=== PATIENT | female | born 1995 | race Caucasian/White ===

== ENCOUNTER 2018-09-08 17:43 | Inpatient (IN) | payer MEDICAID, OTHER ==
[~2018-09-08] VITALS: Ht 160 cm; Wt 96.6 kg
[2018-09-08] MEDS ORDERED: DEXT 5%/LR + PITOCIN 20UNITS/L 1,000 ML IV SCH ×2 (18:33→22:10)
[2018-09-08] MEDS ORDERED: CEFAZOLIN 2000MG PREMIX 50 ML IV ONE (18:37)
[2018-09-08] MEDS ORDERED: MORPHINE SULFATE/PF 1MG/ML 10ML AMP ONE (18:38)
[2018-09-08] MEDS ORDERED: EPHEDRINE SULFATE 50MG/ML VIAL ONE (18:38)
[2018-09-08] MEDS ORDERED: PHENYLEPHRINE HCL 10 MG/ML 1ML (IV VIAL) IV ONE (18:38)
[2018-09-08] MEDS ORDERED: OXYTOCIN 10 UNITS/ML 1ML ONE (18:38)
[2018-09-08] MEDS ORDERED: SODIUM CHLORIDE 0.9% 10ML VIAL ONE (18:38)
[2018-09-08] MEDS ORDERED: GLYCOPYRROLATE 0.2 MG/ML 2ML VIAL ONE (18:38)
[2018-09-08] MEDS ORDERED: ONDANSETRON HCL 4MG/2ML INJ ONE (18:38)
[2018-09-08] MEDS ORDERED: FENTANYL CITRATE/PF 50MCG/ML 2ML VIAL ONE (18:38)
[2018-09-08] MEDS ORDERED: BUPIVACAINE HCL/DEXTROSE/PF 0.75% 2ML AMP INJ ONE (18:39)
[2018-09-08] MEDS ORDERED: CITRIC ACID/SODIUM CITRATE SOLN 30ML UDC PO NR (18:45)
[2018-09-08 18:56] LABS: BASOPHILS % 0.4 % (0.0-2.0); EOSINOPHILS % 0.7 % (0.0-5.0); HEMATOCRIT. 40.1 % (36.0-48.0); HEMOGLOBIN. 13.1 g/dL (12.0-16.0); LYMPHOCYTES % 16.6 % (20.0-50.0); MEAN CORPUSCULAR HEMOGLOBIN 29.3 pg (28.0-32.0); MEAN CORPUSCULAR VOLUME 89.6 fL (81.0-99.0); MEAN PLATELET VOLUME 9.5 fl (7.4-10.4); MONOCYTES % 6.9 % (2.0-8.0); NEUTROPHILS % 75.4 % (40.0-76.0); PLATELET 182 x1000/uL (130-400); RED BLOOD CELL COUNT 4.48 mill/uL (4.2-5.4); RED CELL DISTRIBUTION WIDTH 14.4 % (11.6-14.6)
[2018-09-08 18:56] LABS: CLARITY URINE CLEAR (CLEAR); COLOR URINE YELLOW (YELLOW); KETONES URINE NEGATIVE (NEGATIVE); LEUKOCYTE ESTERASE URINE 1+ (NEGATIVE); NITRITE URINE NEGATIVE (NEGATIVE); OCCULT BLOOD URINE NEGATIVE (NEGATIVE); PROTEIN URINE TRACE (NEGATIVE); UROBILINOGEN URINE 0.2 E.U./dL (0.2-1.0)
[2018-09-08 19:00] LABS: INR 0.9; PARTIAL THROMBOPLASTIN TIME 29.9 sec (23.4-31.0); PROTHROMBIN TIME 9.5 sec (9.1-11.1)
[2018-09-08] MEDS: LACTATED RINGERS 1,000 ML IV SCH ×2 (19:01→19:21)
[2018-09-08 19:16] LABS: *AMPHETAMINES SCREEN URINE NEGATIVE (NEGATIVE); *BARBITURATES SCREEN URINE NEGATIVE (NEGATIVE); CANNABINOID URINE SCREEN NEGATIVE (NEGATIVE); METHADONE URINE SCREEN NEGATIVE (NEGATIVE); OPIATES URINE SCREEN NEGATIVE (NEGATIVE); PHENCYCLIDINE URINE SCREEN NEGATIVE (NEGATIVE)
[2018-09-08 19:17] LABS: *BENZODIAZEPINES SCREEN URINE NEGATIVE (NEGATIVE); *COCAINE SCREEN URINE NEGATIVE (NEGATIVE)
[2018-09-08 19:32] LABS: HEPATITIS B SURFACE ANTIGEN NEGATIVE
[2018-09-08] MEDS ORDERED: INFLUENZA VIRUS VACCINE(AFLURIA) 0.5ML SYR IM ONE (20:15)
[2018-09-08] MEDS ORDERED: DIPHENHYDRAMINE 50MG/ML VIAL ONE (21:52)
[2018-09-08] MEDS ORDERED: RHO(D) IMMUNE GLOBULIN 300 MCG/SYR IM PRN (22:15)
[2018-09-08] MEDS ORDERED: IBUPROFEN 400MG TABLET PO PRN (22:15)
[2018-09-08] MEDS ORDERED: BISACODYL 10MG SUPP PR PRN (22:15)
[2018-09-08] MEDS ORDERED: MEASLES,MUMPS&RUBELLA VACCINE 1 VIAL SUBCUT ONE (22:15)
[2018-09-08] MEDS ORDERED: HYDROMORPHONE HCL/PF 2MG/ML CPJ IM PRN (22:15)
[2018-09-08] MEDS ORDERED: TETANUS, DIPHTHERIA, PERTUSSIS VAC/PF 0.5ML (>7YR OLD) IM ONE (22:15)
[2018-09-08] MEDS ORDERED: DIPHENHYDRAMINE 25MG CAPSULE PO PRN (22:15)
[2018-09-08] MEDS ORDERED: ONDANSETRON HCL 4MG/2ML INJ IV PRN (22:15)
[2018-09-08] MEDS ORDERED: LANOLIN OINT 0.25 GM TUBE TOP PRN (22:15)
[2018-09-08] MEDS ORDERED: DIPHENHYDRAMINE 50MG/ML VIAL IV PRN (22:30)
[2018-09-08] MEDS ORDERED: KETOROLAC 30MG/ML VIAL IV PRN (22:30)
[2018-09-08] MEDS ORDERED: BUTORPHANOL TARTRATE 2 MG/ML VIAL IV PRN (22:30)
[2018-09-08] MEDS ORDERED: NALOXONE HCL 0.4 MG/ML 1ML VIAL IV PRN (22:30)
[2018-09-09] MEDS: IBUPROFEN 800MG TABLET PO PRN ×2 (06:00→18:10)
[2018-09-09 07:45] VITALS: BP 112/67
[2018-09-09] MEDS ORDERED: TETANUS, DIPHTHERIA, PERTUSSIS VAC/PF 0.5ML (>7YR OLD) IM ONE (09:00)
[2018-09-09] MEDS: SIMETHICONE 80MG TABLET CHEW PO SCH ×4 (10:05→20:47)
[2018-09-09] MEDS: PRENATAL VIT/FE FUMARATE/FA TABLET PO SCH (10:05)
[2018-09-09 12:00] VITALS: BP 109/60
[2018-09-09] MEDS: FERROUS SULFATE 325MG TABLET PO SCH ×2 (13:21→17:53)
[2018-09-09 16:21] VITALS: BP 110/62
[2018-09-09] MEDS: HYDROCODONE/ACETAMINOPHEN 5/325MG TABLET PO PRN (21:16)
[2018-09-09 22:00] VITALS: BP 115/68
[2018-09-10] MEDS: IBUPROFEN 800MG TABLET PO PRN ×2 (04:21→20:54)
[2018-09-10 04:30] VITALS: BP 122/68
[2018-09-10] MEDS: HYDROCODONE/ACETAMINOPHEN 5/325MG TABLET PO PRN ×2 (05:32→14:45)
[2018-09-10 08:15] VITALS: BP 113/68
[2018-09-10] MEDS: FERROUS SULFATE 325MG TABLET PO SCH ×3 (08:51→17:27)
[2018-09-10] MEDS: SIMETHICONE 80MG TABLET CHEW PO SCH ×4 (08:51→20:53)
[2018-09-10] MEDS: PRENATAL VIT/FE FUMARATE/FA TABLET PO SCH (08:51)
[2018-09-10 12:00] VITALS: BP 110/70
[2018-09-10 20:52] LABS: BASOPHILS % 0.4 % (0.0-2.0); HEMOGLOBIN. 9.7 g/dL (12.0-16.0); LYMPHOCYTES % 19.8 % (20.0-50.0); MEAN CORPUSCULAR HEMOGLOBIN 30.1 pg (28.0-32.0); MEAN CORPUSCULAR VOLUME 90.1 fL (81.0-99.0); MEAN PLATELET VOLUME 9.4 fl (7.4-10.4); MONOCYTES % 4.4 % (2.0-8.0); NEUTROPHILS % 74.4 % (40.0-76.0); PLATELET 193 x1000/uL (130-400); RED BLOOD CELL COUNT 3.21 mill/uL (4.2-5.4); RED CELL DISTRIBUTION WIDTH 14.6 % (11.6-14.6)
[2018-09-10 21:15] VITALS: BP 125/74
[2018-09-11 05:24] VITALS: BP 116/76
[2018-09-11 09:00] VITALS: BP 131/68
[2018-09-11] MEDS: FERROUS SULFATE 325MG TABLET PO SCH (09:23)
[2018-09-11] MEDS: IBUPROFEN 800MG TABLET PO PRN (09:23)
[2018-09-11] MEDS: PRENATAL VIT/FE FUMARATE/FA TABLET PO SCH (09:23)
[2018-09-11] MEDS: SIMETHICONE 80MG TABLET CHEW PO SCH (09:23)
== END 2018-09-11 15:00 | disposition home or self-care (01) | DRG 540 ==
LOC: L&D 17:43 → OBSVTOIN 17:43 → 7EST PP/OB 09-09 00:30
PROVIDERS: ADMIT Specialist; ATTEND Specialist
PROC: 10D00Z1 Extraction of Products of Conception, Low, Open Approach (ICD-10-PCS; principal; 2018-09-08 21:12)
DX: O40.3XX0 Polyhydramnios, third trimester, not applicable or unspecified (principal); Z37.0 Single live birth; Z3A.38 38 weeks gestation of pregnancy
CPT/HCPCS: 36415; 80305; 86592; 86703; 86762; 86850; 86900; 87340; 88307; 90686; 90715; 99281; A4216; J0690; J1200; J2274; J2370; J2405; J2590; J3010; J3490; A4315

== ENCOUNTER 2019-09-20 19:21 | Inpatient (IN) | payer OTHER ==
[~2019-09-20] VITALS: Ht 162.6 cm; Wt 99.8 kg
[2019-09-20] MEDS ORDERED: PREN-176 MT (19:56)
[2019-09-20] MEDS ORDERED: DEXT 5%/LR + PITOCIN 20UNITS/L 1,000 ML IV SCH (20:18)
[2019-09-20] MEDS ORDERED: LIDOCAINE HCL 1% 20ML VIAL (Pyxis) INJ INFIL NR (20:30)
[2019-09-20] MEDS ORDERED: METHYLERGONOVINE MALEATE 0.2 MG/ML IM PRN (20:30)
[2019-09-20] MEDS ORDERED: NALOXONE HCL 0.4 MG/ML 1ML VIAL IM PRN (20:30)
[2019-09-20] MEDS: DEXT 5%/LACTATED RINGERS 1,000 ML IV SCH (21:13)
[2019-09-20 21:55] LABS: BASOPHILS % 0.6 % (0.0-2.0); EOSINOPHILS % 1.7 % (0.0-5.0); HEMOGLOBIN. 12.2 g/dL (12.0-16.0); MEAN CORPUSCULAR HEMOGLOBIN 30.3 pg (28.0-32.0); MEAN CORPUSCULAR VOLUME 89.8 fL (81.0-99.0); MEAN PLATELET VOLUME 9.2 fl (7.4-10.4); MONOCYTES % 5.6 % (2.0-8.0); NEUTROPHILS % 71.1 % (40.0-76.0); PLATELET 198 x1000/uL (130-400); RED BLOOD CELL COUNT 4.01 mill/uL (4.2-5.4); RED CELL DISTRIBUTION WIDTH 14.4 % (11.6-14.6)
[2019-09-20 22:02] LABS: CLARITY URINE CLEAR (CLEAR); COLOR URINE YELLOW (YELLOW); KETONES URINE NEGATIVE (NEGATIVE); LEUKOCYTE ESTERASE URINE TRACE (NEGATIVE); NITRITE URINE NEGATIVE (NEGATIVE); OCCULT BLOOD URINE NEGATIVE (NEGATIVE); PH URINE 6.5 (4.5-8.0); PROTEIN URINE NEGATIVE (NEGATIVE); SPECIFIC GRAVITY URINE 1.011 (1.005-1.030); UROBILINOGEN URINE 0.2 E.U./dL (0.2-1.0)
[2019-09-20 22:05] LABS: INR 0.9; PARTIAL THROMBOPLASTIN TIME 28.4 sec (23.4-31.0); PROTHROMBIN TIME 9.6 sec (9.6-11.0)
[2019-09-20 22:13] LABS: *AMPHETAMINES SCREEN URINE NEGATIVE (NEGATIVE); *BARBITURATES SCREEN URINE NEGATIVE (NEGATIVE)
[2019-09-20 22:14] LABS: *BENZODIAZEPINES SCREEN URINE NEGATIVE (NEGATIVE); *COCAINE SCREEN URINE NEGATIVE (NEGATIVE); CANNABINOID URINE SCREEN NEGATIVE (NEGATIVE); METHADONE URINE SCREEN NEGATIVE (NEGATIVE); OPIATES URINE SCREEN NEGATIVE (NEGATIVE); PHENCYCLIDINE URINE SCREEN NEGATIVE (NEGATIVE)
[2019-09-20] MEDS ORDERED: INFLUENZA VIRUS VACCINE(AFLURIA) 0.5ML SYR IM ONE (22:15)
[2019-09-20 22:34] LABS: HEPATITIS B SURFACE ANTIGEN NEGATIVE
[2019-09-20] MEDS: BUTORPHANOL TARTRATE 2 MG/ML VIAL IV PRN (23:47)
[2019-09-21] MEDS: DEXT 5%/LACTATED RINGERS 1,000 ML IV SCH ×2 (02:16→12:38)
[2019-09-21] MEDS: BUTORPHANOL TARTRATE 2 MG/ML VIAL IV PRN (02:39)
[2019-09-21] MEDS ORDERED: ROPIVACAINE HCL/PF EPIDURAL 200 ML EPI SCH (12:30)
[2019-09-21] MEDS: LACTATED RINGERS 1,000 ML IV SCH (21:35)
[2019-09-22] MEDS: LACTATED RINGERS 1,000 ML IV SCH (01:32)
[2019-09-22] MEDS ORDERED: ROPIVACAINE HCL/PF EPIDURAL 200 ML EPI SCH (02:15)
[2019-09-22] MEDS ORDERED: FENTANYL CITRATE/PF 50MCG/ML 2ML VIAL ONE ×2 (08:41→14:18)
[2019-09-22] MEDS ORDERED: EPHEDRINE SULFATE 50MG/ML VIAL ONE (08:47)
[2019-09-22] MEDS ORDERED: ACETAMINOPHEN 325MG TABLET PO PRN (09:30)
[2019-09-22] MEDS: AMPICILLIN 2,000 MG in SODIUM CHLORIDE 0.9% 100 ML IV SCH ×2 (10:10→14:04)
[2019-09-22 10:16] LABS: HEMATOCRIT. 37.3 % (36.0-48.0); HEMOGLOBIN. 12.3 g/dL (12.0-16.0); MEAN CORPUSCULAR HEMOGLOBIN 29.7 pg (28.0-32.0); MEAN CORPUSCULAR VOLUME 90.2 fL (81.0-99.0); MEAN PLATELET VOLUME 8.8 fl (7.4-10.4); PLATELET 170 x1000/uL (130-400); RED BLOOD CELL COUNT 4.14 mill/uL (4.2-5.4); RED CELL DISTRIBUTION WIDTH 14.5 % (11.6-14.6)
[2019-09-22 11:20] LABS: PLATELET ESTIMATE NORMAL
[2019-09-22] MEDS ORDERED: LIDOCAINE HCL 2%/EPINEPHRINE 1:100,000 20 ML VIAL INFIL ONE (12:58)
[2019-09-22] MEDS ORDERED: ROPIVACAINE HCL/PF EPIDURAL 200 ML EPI ONE (13:08)
[2019-09-22] MEDS: BUTORPHANOL TARTRATE 2 MG/ML VIAL IV PRN (13:10)
[2019-09-22] MEDS ORDERED: CEFAZOLIN SODIUM 1000MG/VIAL ONE (14:46)
[2019-09-22] MEDS ORDERED: OXYTOCIN 10 UNITS/ML 1ML ONE (14:46)
[2019-09-22] MEDS ORDERED: MORPHINE SULFATE/PF 1MG/ML 10ML AMP ONE (14:46)
[2019-09-22] MEDS ORDERED: MIDAZOLAM HCL 2 MG/2 ML VIAL ONE ×2 (14:56→15:29)
[2019-09-22] MEDS ORDERED: KETAMINE HCL 50 MG/ML 10ML ONE (15:03)
[2019-09-22] MEDS ORDERED: NALOXONE HCL 0.4 MG/ML 1ML VIAL ONE (15:18)
[2019-09-22] MEDS ORDERED: ONDANSETRON HCL 4MG/2ML INJ ONE (15:44)
[2019-09-22] MEDS ORDERED: METOCLOPRAMIDE HCL 10MG/2ML VIAL ONE (15:44)
[2019-09-22] MEDS ORDERED: PHENYLEPHRINE HCL 10 MG/ML 1ML (IV VIAL) IV ONE (15:47)
[2019-09-22] MEDS ORDERED: DEXT 5%/LR + PITOCIN 20UNITS/L 1,000 ML IV SCH (16:20)
[2019-09-22] MEDS ORDERED: DIPHENHYDRAMINE 25MG CAPSULE PO PRN (16:30)
[2019-09-22] MEDS ORDERED: LANOLIN OINT 7GM TUBE TOP PRN (16:30)
[2019-09-22] MEDS ORDERED: IBUPROFEN 400MG TABLET PO PRN (16:30)
[2019-09-22] MEDS ORDERED: BUTORPHANOL TARTRATE 2 MG/ML VIAL IV PRN ×2 (16:30)
[2019-09-22] MEDS ORDERED: HYDROMORPHONE HCL/PF 2MG/ML CPJ IV PRN (16:30)
[2019-09-22] MEDS ORDERED: BISACODYL 10MG SUPP PR PRN (16:30)
[2019-09-22] MEDS ORDERED: HEMORRHOIDAL SUPP PR PRN (16:30)
[2019-09-22] MEDS ORDERED: HYDROCODONE/ACETAMINOPHEN 5/325MG TABLET PO PRN (16:30)
[2019-09-22] MEDS ORDERED: NALOXONE HCL 0.4 MG/ML 1ML VIAL IV PRN (16:30)
[2019-09-22] MEDS ORDERED: ONDANSETRON HCL 4MG/2ML INJ IV PRN ×2 (16:30)
[2019-09-22] MEDS ORDERED: DIPHENHYDRAMINE 50MG/ML VIAL IV PRN (16:30)
[2019-09-22] MEDS ORDERED: NALOXONE HCL 0.4 MG/ML 1ML VIAL IM PRN (17:30)
[2019-09-22 18:00] VITALS: BP 125/50
[2019-09-22 18:30] VITALS: BP 119/60
[2019-09-22 19:00] VITALS: BP 127/67
[2019-09-22] MEDS ORDERED: TETANUS, DIPHTHERIA, PERTUSSIS VAC/PF 0.5ML (>7YR OLD) IM ONE (19:00)
[2019-09-22] MEDS ORDERED: INFLUENZA VIRUS VACCINE(AFLURIA) 0.5ML SYR IM ONE (19:00)
[2019-09-22] MEDS: KETOROLAC 30MG/ML VIAL IV SCH (20:47)
[2019-09-22] MEDS: SIMETHICONE 80MG TABLET CHEW PO SCH (21:00)
[2019-09-23] MEDS: KETOROLAC 30MG/ML VIAL IV SCH ×2 (02:37→09:02)
[2019-09-23 07:34] VITALS: BP 109/50
[2019-09-23 08:04] LABS: BASOPHILS % 0.5 % (0.0-2.0); EOSINOPHILS % 0.9 % (0.0-5.0); HEMATOCRIT. 27.4 % (36.0-48.0); HEMOGLOBIN. 9.2 g/dL (12.0-16.0); LYMPHOCYTES % 14.2 % (20.0-50.0); MEAN CORPUSCULAR HEMOGLOBIN 30.2 pg (28.0-32.0); MONOCYTES % 4.5 % (2.0-8.0); NEUTROPHILS % 79.9 % (40.0-76.0); PLATELET 147 x1000/uL (130-400); RED BLOOD CELL COUNT 3.05 mill/uL (4.2-5.4); RED CELL DISTRIBUTION WIDTH 14.4 % (11.6-14.6)
[2019-09-23] MEDS: SIMETHICONE 80MG TABLET CHEW PO SCH ×4 (09:01→21:57)
[2019-09-23] MEDS: FERROUS SULFATE 325MG TABLET PO SCH ×3 (09:02→17:49)
[2019-09-23] MEDS: PRENATAL VIT/FE FUMARATE/FA TABLET PO SCH (09:02)
[2019-09-23] MEDS: IBUPROFEN 800MG TABLET PO PRN ×2 (14:33→23:55)
[2019-09-23 15:50] VITALS: BP 119/68
[2019-09-23 19:30] VITALS: BP 102/57
[2019-09-23 23:54] VITALS: BP 102/59
[2019-09-24] MEDS ORDERED: FERR325T23 PO (03:18)
[2019-09-24] MEDS ORDERED: IBUP-2030 PO (03:18)
[2019-09-24] MEDS ORDERED: INFLUENZA VIRUS VACCINE(AFLURIA) 0.5ML SYR IM ONE (06:00)
[2019-09-24 09:19] VITALS: BP 102/59
[2019-09-24] MEDS: IBUPROFEN 800MG TABLET PO PRN (09:19)
[2019-09-24] MEDS: PRENATAL VIT/FE FUMARATE/FA TABLET PO SCH (09:19)
[2019-09-24] MEDS: SIMETHICONE 80MG TABLET CHEW PO SCH (09:19)
== END 2019-09-24 14:00 | disposition home or self-care (01) | DRG 540 ==
LOC: 8 EST LDRP 19:21 → OBSVTOIN 19:21 → 8EST 09-22 17:52
PROVIDERS: ADMIT Specialist; ATTEND Specialist
PROC: 0U797ZZ Dilation of Uterus, Via Natural or Artificial Opening (ICD-10-PCS; 2019-09-20)
PROC: 10D00Z1 Extraction of Products of Conception, Low, Open Approach (ICD-10-PCS; principal; 2019-09-22)
DX: O48.0 Post-term pregnancy (principal); O99.324 Drug use complicating childbirth; O62.2 Other uterine inertia; O34.211 Maternal care for low transverse scar from previous cesarean delivery; F12.10 Cannabis abuse, uncomplicated; O76 Abnormality in fetal heart rate and rhythm complicating labor and delivery; Z37.0 Single live birth; Z3A.40 40 weeks gestation of pregnancy
CPT/HCPCS: 36415; 76805; 80305; 81003; 85025; 86592; 86703; 86762; 86850; 86900; 87340; 88307; 90686; 99281; G0378; J0290; J0595; J0690; J1885; J2250; J2274; J2310; J2370; J2405; J2590; J2765; J2795; J3010; J3490; J7050; J7120; A4315